=== PATIENT | female | born 1955 | race Caucasian/White ===

== ENCOUNTER 2021-01-11 14:05 | Day surgery (SDC) | payer MEDICARE ==
[~2021-01-11] VITALS: Ht 172.7 cm; Wt 102.9 kg
[2021-01-11 14:59] VITALS: BP 120/72
== END 2021-01-11 18:00 | disposition home or self-care (01) ==
LOC: OUT 14:05
PROVIDERS: ATTEND Physician Assistant
DX: N39.46 Mixed incontinence (principal); N35.92 Unspecified urethral stricture, female; I10 Essential (primary) hypertension; J44.9 Chronic obstructive pulmonary disease, unspecified; E78.5 Hyperlipidemia, unspecified; F32.9 Major depressive disorder, single episode, unspecified; Z79.899 Other long term (current) drug therapy; Z87.440 Personal history of urinary (tract) infections; Z87.891 Personal history of nicotine dependence; Z99.81 Dependence on supplemental oxygen; Z98.890 Other specified postprocedural states
CPT/HCPCS: 51102; 75989